=== PATIENT | female | born 1975 | race American Indian/Alaskan Native ===

== ENCOUNTER 2016-09-24 16:28 | Emergency (ER) | payer SELFPAY ==
[2016-09-24 17:31] VITALS: BP 128/86
[2016-09-24] MEDS ORDERED: ZOFRAN ODT PO ONE (17:46)
[2016-09-24] MEDS ORDERED: CLEOCIN IM ONE (17:46)
[2016-09-24] MEDS ORDERED: BOOSTRIX IM ONE (17:46)
[2016-09-24] MEDS ORDERED: PERCOCET 5/325 PO ONE (17:46)
--- NOTE | 2016-09-24 17:46 | Emergency Department Report ---
- General Chief complaint: Skin/Abscess/Foreign Body Stated complaint: ABCESS Time Seen by Provider: 09/24/16 17:39 Source: family Mode of arrival: Ambulatory Limitations: No Limitations - History of Present Illness MD complaint: abscess/boil Onset/Timin -: days(s) Tetanus Up to Date: no Location: buttocks Severity: severe Severity scale (0 -10): 9 Quality: constant, other (throbbing) Consistency: constant Improves with: rest Worsens with: palpation, movement Context: other (H/O abscess. No know staph) Associated symptoms: denies other symptoms Treatments Prior to Arrival: none - Related Data Previous Rx's Medication Instructions Recorded Last Taken Type Fluconazole [Diflucan TAB] 150 mg PO ONCE PRN #1 tablet 09/24/16 Unknown Rx HYDROcodone/APAP 5-325 [[place] 1 each PO Q6HR PRN #12 tablet 09/24/16 Unknown Rx 5/325] Ibuprofen [Motrin] 600 mg PO Q8H PRN #15 tablet 09/24/16 Unknown Rx Sulfamethoxazole/Trimethoprim 1 each PO BID #20 tablet 09/24/16 Unknown Rx [Bactrim DS TAB] Allergies Allergy/AdvReac Type Severity Reaction Status Date / Time No Known Allergies Allergy Unverified 09/24/16 17:27 Abscess Boil HPI - HPI Chief Complaint: Skin/Abscess/Foreign Body Stated Complaint: ABCESS Time Seen by Provider: 09/24/16 17:39 Home Medications: Previous Rx's Medication Instructions Recorded Last Taken Type Fluconazole [Diflucan TAB] 150 mg PO ONCE PRN #1 tablet 09/24/16 Unknown Rx HYDROcodone/APAP 5-325 [[place] 1 each PO Q6HR PRN #12 tablet 09/24/16 Unknown Rx 5/325] Ibuprofen [Motrin] 600 mg PO Q8H PRN #15 tablet 09/24/16 Unknown Rx Sulfamethoxazole/Trimethoprim 1 each PO BID #20 tablet 09/24/16 Unknown Rx [Bactrim DS TAB] Allergies/Adverse Reactions: Allergies Allergy/AdvReac Type Severity Reaction Status Date / Time No Known Allergies Allergy Unverified 09/24/16 17:27 ED Review of Systems ROS: Stated complaint: ABCESS Other details as noted in HPI Comment: All other systems reviewed and negative Constitutional: denies: chills, fever Respiratory: no symptoms reported Cardiovascular: denies: chest pain, palpitations, edema, syncope Gastrointestinal: denies: abdominal pain, nausea, vomiting, diarrhea Musculoskeletal: denies: back pain, joint swelling, arthralgia, myalgia Skin: other (abscess, rednes buttocks) Neurological: denies: headache, weakness, abnormal gait ED Past Medical Hx - Past Medical History Previous Medical History?: Yes Additional medical history: Menopausal s/s. Abscesses - Surgical History Past Surgical History?: Yes Additional Surgical History: Bunionectomy - Family History Family history: no significant - Social History Smoking Status: Never Smoker Substance Use Type: Alcohol - Medications Home Medications: Home Medications Medication Instructions Recorded Confirmed Last Taken Type Fluconazole [Diflucan TAB] 150 mg PO ONCE PRN #1 tablet 09/24/16 Unknown Rx HYDROcodone/APAP 5-325 [[place] 1 each PO Q6HR PRN #12 tablet 09/24/16 Unknown Rx 5/325] Ibuprofen [Motrin] 600 mg PO Q8H PRN #15 tablet 09/24/16 Unknown Rx Sulfamethoxazole/Trimethoprim 1 each PO BID #20 tablet 09/24/16 Unknown Rx [Bactrim DS TAB] ED Physical Exam - General Limitations: No Limitations General appearance: alert, in no apparent distress - Head Head exam: Present: atraumatic, normocephalic, normal inspection - Eye Eye exam: Present: normal appearance, PERRL, EOMI Pupils: Present: normal accommodation - ENT ENT exam: Present: normal exam, normal orophraynx, mucous membranes moist - Neck Neck exam: Present: normal inspection, full ROM. Absent: tenderness, meningismus, lymphadenopathy - Respiratory Respiratory exam: Present: normal lung sounds bilaterally. Absent: respiratory distress, chest wall tenderness - Cardiovascular Cardiovascular Exam: Present: regular rate, normal rhythm, normal heart sounds - GI/Abdominal GI/Abdominal exam: Present: soft, normal bowel sounds. Absent: distended, tenderness, guarding, rebound, rigid - Extremities Exam Extremities exam: Present: normal inspection, full ROM, normal capillary refill. Absent: tenderness, pedal edema, joint swelling, calf tenderness - Back Exam Back exam: Present: normal inspection, full ROM. Absent: tenderness - Neurological Exam Neurological exam: Present: alert, oriented X3, normal gait, reflexes normal. Absent: motor sensory deficit - Psychiatric Psychiatric exam: Present: normal affect, normal mood - Skin Skin exam: Present: warm, dry, intact, erythema - Expanded Skin Exam Expanded Distribution of rash: other (Rt distal buttocks) Description of rash: Present: size (2x2 cm), tenderness, erythematous, swelling , fluctuant (small area of fluctuance to center), indurated. Absent: vesicular , blisters, petechial, purpuic, urticarial, discharge ED Course Vital Signs 09/24/16 17:27 Temperature 98.8 F Pulse Rate 93 H Respiratory 18 Rate Blood Pressure 128/86 O2 Sat by Pulse 100 Oximetry - Reevaluation(s) Reevaluation #1: 09/24/16 18:42 She received Percocet 5/325 2 tablets for pain, Zofran 4 mg ODT to prevent nausea and streaks 0.5 mL to update tetanus. Given clindamycin 600 mg without any adverse reaction.IM - I & D Right Distal Buttocks Type of Procedure: Complex Site: RT distal buttocks Blade Size: 11 I & D Procedure: betadine prep, sterile drapes applied, sterile dressing applied , gauze wick placed Progress: Patient with his incision and drainage of abscess to right distal buttocks. 2 x 2 centimeter of erythema with area of fluctuance to Center of abscess. Positive induration. 25 cm incision made to Center of abscess and small amount of thick white pus drained from site. 10 mL of 0.5% Marcaine injected to site prior to incision. Area packed with 1 inch iodoform packing and sterile dry dressing placed the side. Tetanus vaccine is updated and patient given clindamycin 600 mg IM in emergency room without any adverse reaction. ED Medical Decision Making - Medical Decision Making ED course: here with cellulitis and abscess of the right buttocks. Patient afebrile. She gets these repetitively. Last occurrence was on her labia. Patient given Percocet 5/325 mg 2 tablets prior to procedure for pain. She rec and there are eived Zofran 4 mg ODT to nausea. Abscess to right buttocks I&D sterile iodoform packing in place the site. Sterile dry dressing placed over packing in and patient instructed to return to the emergency room in 4 days for removal of packing. He was given clindamycin 600 mg IM without any adverse reaction and Boostrix 0.5 mL to update tetanus.See procedure note for details and incision and drainage. Patient discharged home to return to the emergency room in 4 days and to follow up with her primary care physician in 3 days. Patient given prescription for [place], Motrin, Bactrim DS . She also requested medication for yeast prophylaxis that she was given prescription for Diflucan on. Discharge Home in stable condition. Critical care attestation.: If time is entered above; I have spent that time in minutes in the direct care of this critically ill patient, excluding procedure time. ED Disposition Clinical Impression: Abscess of right buttock, Cellulitis of right buttock, Encounter for incision and drainage procedure Disposition: - TO HOME OR SELFCARE Is pt being admited?: No Does the pt Need Aspirin: No Condition: Stable Instructions: Abscess Incision and Drainage (ED), Cellulitis (ED) Additional Instructions: Please return to the emergency room on 08/28/2016 for removal of packing . Please take Bactrim as prescribed. Do not take [place] while driving or operating heavy machinery as this medication causes drowsiness Please do not remove packing in Apply warm compresses to affected site 3-4 times a day to facilitate soft name and drainage of abscess. If you develop, fever, increasing pain, increasing redness to site please return to the emergency room Prescriptions: Fluconazole [Diflucan TAB] 150 mg PO ONCE PRN #1 tablet PRN Reason: YEAST HYDROcodone/APAP 5-325 [[place] 5/325] 1 each PO Q6HR PRN #12 tablet PRN Reason: Pain Ibuprofen [Motrin] 600 mg PO Q8H PRN #15 tablet PRN Reason: Pain Sulfamethoxazole/Trimethoprim [Bactrim DS TAB] 1 each PO BID #20 tablet Referrals: return to, ER [Other] - 09/28/16 (For packing removal) follow-up with, primary care [Other] - 09/27/16 Forms: Work/School Release Form(ED), Accompanied Note
[2016-09-24] MEDS ORDERED: MARCAINE 0.5% INFILTRATI ONE (17:47)
== END 2016-09-24 19:00 | disposition home or self-care (01) ==
LOC: ED 16:28
DX: L02.31 Cutaneous abscess of buttock (principal); L03.317 Cellulitis of buttock
CPT/HCPCS: 90471; 90715; 96372; Q0162